=== PATIENT | female | born 1970 | race Caucasian/White ===

== ENCOUNTER → 2016-07-05 | Day surgery (SDC) | payer OTHER ==
[2016-07-04 13:01] VITALS: Ht 162.6 cm; Wt 81.8 kg
[~2016-07-05] VITALS: Ht 162.6 cm; Wt 81.8 kg
[~2016-07-05] MED LIST: ALBUAER INH; MOME1AER4 INH; RIZA1TAB11 UT; RMCI IV; SODIUM CHLORIDE 0.9% 500ML 500 ML IV ONE; TRAM-10 PO
--- NOTE | 2016-07-05 08:39 | Endo History and Physical ---
History & Physical Date of Service: July 05, 2016. Chief Complaint: Crohn's Referring Physician: Dr. Jerald Hayes History of Present Illness 46 yo CF who presents for colonoscopy secondary to Crohn's Disease. Past Medical History Asthma Past Surgical History Hx Cardiac Surgery: No Hx Internal Defibrillator: No Hx Pacemaker: No Hx Abdominal Surgery: Yes (ANDER, COLON RESECTION, UTERINE ABLATION) Hx of Implantable Prosthesis: No Hx Post-Op Nausea and Vomiting: No Hx Cancer Surgery: No Hx Thoracic Surgery: No Hx Orthopedic: Yes (LEFT KNEE SX X 3, RT ANKLE SX WITH HARDWARE) Hx Urinary Tract Surgery: Yes (BLADDER SLING) Family History Colon CA, Polyp Social History Smoking Status: Never Smoker Hx Substance Use: No Hx Alcohol Use: Yes (RARELY) Allergies Coded Allergies: Sulfa Antibiotics (Verified Allergy, Severe, RASH, 07/04/16) Current Medications Reported Home Medications Medications Dose Route/Sig Max Daily Dose Days Date Category Dose Instructions Proventil Hfa (Albuterol Sulfate) 108 Mcg/Act Aer 2 Puff INH QID PRN 07/04/16 Reported Rizatriptan Benzoate 10 Mg Tab 10 Mg UT Q6H PRN 04/17/14 Reported Remicade (Infliximab) 100 Mg/10 Ml Inj 1 Dose IV Q8WK 03/07/14 Reported 10 MG/KG Asmanex 30 Metered Doses (Mometasone Furoate) 220 Mcg/ Aer 1 Puff INH QAM 02/06/13 Reported Vital Signs Weight (Kilograms): 81.82 Height (Feet): 5 Height (Inches): 4 Date Time Temp Pulse Resp B/P Pulse Ox O2 Delivery O2 Flow Rate FiO2 07/05/16 08:14 36.9 88 20 112/77 98 Room Air Physical Exam General Appearance: WD/WN, no apparent distress Respiratory/Chest: Auscultation: breath sounds normal Cardiovascular: Heart Auscultation: RRR Abdomen: Bowel Sounds: normal Inspection & Palpation: soft, non-distended, no tenderness, guarding & rebound Assessment and Plan Assessment: 46 yo CF who presents for colonoscopy secondary to Crohn's Disease. Plan: Proceed with colonoscopy.
--- NOTE | 2016-07-05 09:12 | Discharge Instructions ---
Endoscopy Patient Instructions Date / Procedure(s) Performed July 05, 2016. Colonoscopy Allergy Information Coded Allergies: Sulfa Antibiotics (Verified Allergy, Severe, RASH, 07/04/16) Discharge Date / Findings July 05, 2016. Colon polyps Crohn's Disease with Random colon biopsies Medication Instructions OK to resume all medications today as prescribed Reported Home Medications Medications Dose Route/Sig Max Daily Dose Days Date Category Dose Instructions Proventil Hfa (Albuterol Sulfate) 108 Mcg/Act Aer 2 Puff INH QID PRN 07/04/16 Reported Rizatriptan Benzoate 10 Mg Tab 10 Mg UT Q6H PRN 04/17/14 Reported Remicade (Infliximab) 100 Mg/10 Ml Inj 1 Dose IV Q8WK 03/07/14 Reported 10 MG/KG Asmanex 30 Metered Doses (Mometasone Furoate) 220 Mcg/ Aer 1 Puff INH QAM 02/06/13 Reported Provider Instructions Activity Restrictions - No exercising or heavy lifting for 24 hours. - Do not drink alcohol the day of the procedure. - Do not drive a car or operate machinery until the day after the procedure. - Do not make any important decisions or sign important papers in 24 hours after the procedure. Following Day: - Return to full activity which may include returning to work/school. Diet Start your diet with liquids and light foods (jello, soup, juice, toast). Then eat your usual diet if not nauseated. Treatment For Common After Affects For mild abdominal pain, bloating, or excessive gas: - Rest - Eat lightly - Lie on right side Follow-Up Information Follow-up with Dr. Darshana Hayes as scheduled Anesthesia Information What You Should Know You have had a procedure that required some medicine to reduce anxiety and discomfort. This treatment is called moderate sedation. After receiving the treatment, you may be sleepy, but you will be able to breathe on your own. The effects of the treatment may last for several hours. Follow these instructions along with Activity/Diet recommendations noted above: * Do NOT do anything where dizziness or clumsiness would be dangerous. * Rest quietly at home today, then you can be up and about tomorrow. * Have a responsible person stay with you the rest of today. * You may have had an I.V. today. If so, you may take the dressing off later today. Recommendations Call your doctor if: * Trouble breathing * Continuous vomiting for more than 24 hours * Temperature above 101 degrees * Severe abdominal pain or bloating * Pain not relieved by pain medicine ordered * There is increased drainage or redness from any incision * A large amount of rectal bleeding greater than 2-3 tablespoons. (If you had a polyp/s removed or have hemorrhoids, a small amount of blood - from the rectum is to be expected.) * You have any unanswered questions or concerns. IN THE EVENT OF A SERIOUS EMERGENCY, GO TO THE NEAREST EMERGENCY ROOM Your discharge instructions were prepared by provider Tanner Wilcox. Patient Instructions Signature Page Xiomara Pierre Patient (or Guardian) Signature/Date: I have read and understand the instructions given to me by my caregivers. Caregiver/RN/Doctor Signature/Date: The above-named patient and/or guardian has received patient instructions on this date. + Original Patient Signature Page (only) stays with chart. Please make copy for patient.
--- NOTE | 2016-07-05 09:23 | GI REPORT ---
Procedure Date: 07/05/2016 8:46 AM Procedure: Colonoscopy Indications: Disease activity assessment of Crohn's disease of the small bowel Medicines: Monitored Anesthesia Care Complications: No immediate complications. Estimated Blood Loss: Estimated blood loss: none. Procedure: Pre-Anesthesia Assessment: - Prior to the procedure, a History and Physical was performed, and patient medications and allergies were reviewed. The patient's tolerance of previous anesthesia was also reviewed. The risks and benefits of the procedure and the sedation options and risks were discussed with the patient. All questions were answered, and informed consent was obtained. Prior Anticoagulants: The patient has taken no previous anticoagulant or antiplatelet agents. ASA Grade Assessment: II - A patient with mild systemic disease. After reviewing the risks and benefits, the patient was deemed in satisfactory condition to undergo the procedure. After I obtained informed consent, the scope was passed under direct vision. Throughout the procedure, the patient's blood pressure, pulse, and oxygen saturations were monitored continuously. The scope was introduced through the anus and advanced to the terminal ileum. The colonoscopy was performed without difficulty. The patient tolerated the procedure well. The quality of the bowel preparation was good. The terminal ileum, ileocecal valve, appendiceal orifice, and rectum were photographed. Findings: Three sessile polyps were found in the rectum and in the ascending colon. The polyps were 5 to 8 mm in size. These polyps were removed with a hot snare. Resection and retrieval were complete. Several random biopsies were obtained with cold forceps for histology in the entire colon. Impression: - Three 5 to 8 mm polyps in the rectum and in the ascending colon, removed with a hot snare. Resected and retrieved. - Several random biopsies were obtained in the entire colon. Recommendation: - Resume previous diet. - Continue present medications. - Repeat colonoscopy for surveillance based on pathology results. - Return to primary care physician as previously scheduled. Tanner Wilcox DO 07/05/2016 9:23:16 AM This report has been signed electronically. Note Initiated On: 07/05/2016 8:46 AM I attest to the content of the Intraoperative Record and orders documented therein, exceptions below
[2016-07-05 09:45] VITALS: BP 118/82; PULSE 75; O2SAT 98
--- NOTE | 2016-07-05 09:54 | Anesthesiology Progress Note ---
Anesthesia Post Op Note Date & Time July 05, 2016 at 09:54 Vital Signs Pain Intensity: 0 Vital Signs Past 12 Hours Date Time Temp Pulse Resp B/P Pulse Ox O2 Delivery O2 Flow Rate FiO2 07/05/16 09:45 75 20 118/82 98 Room Air 07/05/16 09:30 67 16 96/68 96 Room Air 07/05/16 09:15 72 16 100/68 99 Room Air 07/05/16 08:14 36.9 88 20 112/77 98 Room Air Notes Mental Status: alert / awake / arousable, participated in evaluation Pt Amnestic to Procedure: Yes Nausea / Vomiting: adequately controlled Pain: adequately controlled Airway Patency, RR, SpO2: stable & adequate BP & HR: stable & adequate Hydration State: stable & adequate Anesthetic Complications: no major complications apparent
== END | disposition home or self-care (01) ==
LOC: C.GI 07:49
PROVIDERS: ATTEND Internal Medicine
DX: K50.90 Crohn's disease, unspecified, without complications (principal); D12.2 Benign neoplasm of ascending colon; K62.1 Rectal polyp; Z83.71 Family history of colonic polyps; Z80.0 Family history of malignant neoplasm of digestive organs; Z90.49 Acquired absence of other specified parts of digestive tract; J45.909 Unspecified asthma, uncomplicated

== ENCOUNTER → 2016-08-19 | Outpatient (CLI) | payer OTHER ==
[~2016-08-19] MED LIST changes: -SODIUM CHLORIDE 0.9% 500ML 500 ML IV ONE
--- NOTE | 2016-08-19 13:47 | MAMMOGRAPHY REPORT ---
BILATERAL DIGITAL SCREENING MAMMOGRAM TOMOSYNTHESIS WITH CAD: 08/19/2016 CLINICAL HISTORY: Routine screening. Patient has no complaints. TECHNIQUE: Breast tomosynthesis in addition to standard 2D mammography was performed. Current study was also evaluated with a Computer Aided Detection (CAD) system. COMPARISON: Comparison is made to exams dated: 07/31/2015 mammogram, 06/26/2013 ultrasound, 06/26/2013 m ammogram, 05/10/2012 mammogram, 10/14/2011 ultrasound, and 10/14/2011 mammogram - [facility]. BREAST COMPOSITION: There are scattered areas of fibroglandular density in both breasts. FINDINGS: No suspicious masses, calcifications, or areas of architectural distortion are noted in ei ther breast. There has been no significant interval change compared to prior exams. IMPRESSION: ACR BI-RADS CATEGORY 1: NEGATIVE There is no mammographic evidence of malignancy. A 1 year screening mammogram is recommended. The pa tient will receive written notification of the results. Approximately 10% of breast cancers are not detected with mammography. A negative mammographic report should not delay biopsy if a clinically suggestive mass is present. Domi Valiente M.D. /:08/19/2016 13:40:07 Vice President Sales And Marketing: Tete BURGER(R)(M), [facility] letter sent: Normal 1/2 BI-RADS Code: ACR BI-RADS Category 1: Negative
== END | disposition home or self-care (01) ==
LOC: C.MAMM 13:16
PROVIDERS: ATTEND Obstetrics & Gynecology
DX: Z12.31 Encounter for screening mammogram for malignant neoplasm of breast (principal)

== ENCOUNTER → 2016-09-25 | Outpatient (CLI) | payer OTHER ==
[2016-09-28 14:15] LABS: QUANTIFERON NIL 0.03 IU/ML
== END | disposition home or self-care (01) ==
LOC: C.LAB 15:16
PROVIDERS: ATTEND Internal Medicine
DX: K50.90 Crohn's disease, unspecified, without complications (principal)

== ENCOUNTER → 2016-11-15 | Day surgery (SDC) | payer OTHER ==
[2016-10-06 11:51] VITALS: Ht 156.2 cm; Wt 80.0 kg
[2016-11-03 10:11] LABS: BASO % 0.6 %; BASO ABS # 0.04 K/uL (0-0.2); COMPLETE YES; EOS % 2.6 %; HEMATOCRIT 39.8 % (37-47); IG% 0.1 %; LYMPH ABS # 2.32 K/uL (1.2-3.4); MEAN CORPUSCULAR HGB CONC 32.7 g/dl (32-36); MEAN PLATELET VOLUME 10.4 fL (7.4-10.4); MONO % 7.3 %; NEUT % 55.4 %; PLATELET COUNT 357 K/uL (130-400); RED BLOOD COUNT 4.19 M/uL (4.2-5.4); WHITE BLOOD COUNT 6.82 K/uL (4.8-10.8)
[~2016-11-15] VITALS: Ht 156.2 cm; Wt 80.0 kg
[~2016-11-15] MED LIST changes: +ATROPINE SULFATE 0.1 MG/ML 5ML SYR IV PRN; +BUPIVACAINE 0.5 % 5 MG/1 ML MPF 30ML VIAL ONE; +CEFAZOLIN 2000 MG/60 ML D5W 60 ML IV SCH; +DEXAMETHASONE SOD INJ 4 MG/ML VIAL ONE; +EpHEDrine SULFATE 50MG/5ML SYR ONE; +EpHEDrine SULFATE INJ 50 MG/ML AMP IV PRN; +FENTANYL CITRATE INJ 50 MCG/1 ML 2 ML VIAL ONE; +LACTATED RINGER'S 1000ML 1,000 ML IV SCH; +LIDOCAINE HCL 2% 2 ML VIAL (20MG/ML) ONE; +MIDAZOLAM HCL 1 MG/ML 2ML VIAL ONE; +ONDANSETRON INJ 2 MG/ML 2 ML VIAL IV PRN; +ONDANSETRON INJ 2 MG/ML 2 ML VIAL ONE; +OXYCODONE/ACETAMINOPHEN 5-325 TAB PO PRN; +PROPOFOL IV EMULSION 10 MG/ML 20 ML VIAL IV ONE; +SODIUM CHLORIDE 0.9% 1000ML 1,000 ML IV SCH
--- NOTE | 2016-11-15 07:39 | History & Physical Bridge - SC ---
H&P Re-Evaluation Bridge Note: I have examined the patient, reviewed the History & Physical and in the interval since the performance of the History & Physical I have noted the following changes of clinical significance: No changes noted
--- NOTE | 2016-11-15 08:34 | [facility] Post Operative Brief Note ---
Immediate Operative Summary Operative Date Nov 15, 2016. Pre-Operative Diagnosis Right Ankle Retained Painful Hardware Post-Operative Diagnosis Same Procedure(s) Performed Right Ankle Painful Hardware Removal Surgeon Dr. Wolfe Tailor Helper Surgeon(s) Isabel Nice PA-C Estimated Blood Loss 5ml Findings as above Specimens None Hardware removed intact. Patient does not want hardware and does not want to sent it for pathology. Anesthesia LMA Complication(s) None Disposition Recovery Room / PACU
--- NOTE | 2016-11-15 08:39 | Discharge Instructions-SurgCtr ---
Discharge Instructions Date of Service Nov 15, 2016. Visit Reason for Visit: Right Ankle Retained Painful Hardware Discharge Discharge Diagnosis / Problem: SAME ABOVE Discharge Goals Goal(s): Decrease discomfort, Improve function Activity Recommendations Activity Limitations: as noted below Lifting Limitations: gradually increase as tolerated Exercise/Sports Limitations: until after follow-up appointment Shower/Bathe: keep incision dry Weightbearing Status: Right weightbearing (as tolerated) Anesthesia . Post Anesthesia Instructions: If you have had General Anesthesia or IV Sedation: * Do not drive today. * Resume driving when surgeon permits. * Do not make important decisions or sign legal documents today. * Call surgeon for: 1. Temperature elevations greater than 101 degrees F. 2. Uncontrollable pain. 3. Excessive bleeding. 4. Persistent nausea and vomiting. 5. Medication intolerance (nausea, vomiting or rash). * For nausea and vomiting use only clear liquids such as: tea, soda, bouillon until nausea subsides, then gradually increase diet as tolerated. * If you have any concerns or questions, call your surgeon's office. If physician is unavailable and it is an emergency, call 911 or go to the nearest emergency room. . Diet Recommendations Home Diet: resume previous diet Procedures Procedures Performed: Right Ankle Painful Hardware Removal Pending Studies Studies pending at discharge: no Medical Emergencies . Who to Call and When: Medical Emergencies: If at any time you feel your situation is an emergency, please call 911 immediately. . Non-Emergent Contact Non-Emergency issues call your: Primary Care Provider . . "Provider Documentation" section prepared by Geovany Nice. .
[2016-11-15] MEDS: FENTANYL CITRATE INJ 50 MCG/1 ML 2 ML VIAL IV PRN ×3 (09:05→09:25)
--- NOTE | 2016-11-15 09:15 | Anesthesia Progress Nt - [facility] ---
Anesthesia Post Op Note Date & Time Nov 15, 2016 at 09:15 Vital Signs Pain Intensity: 8.0 Vital Signs Past 12 Hours Date Time Temp Pulse Resp B/P (MAP) Pulse Ox O2 Delivery O2 Flow Rate FiO2 11/15/16 08:51 95 11 119/76 100 11/15/16 08:51 94 11 11/15/16 08:46 86 10 126/69 99 11/15/16 08:46 86 10 11/15/16 08:41 89 9 11/15/16 08:41 88 9 121/72 99 11/15/16 08:37 134/78 11/15/16 08:36 36.1 95 18 134/78 100 Mask 6 11/15/16 06:54 37.0 71 22 114/79 (91) 95 Room Air Notes Mental Status: alert / awake / arousable, participated in evaluation Pt Amnestic to Procedure: Yes Nausea / Vomiting: adequately controlled Pain: adequately controlled Airway Patency, RR, SpO2: stable & adequate BP & HR: stable & adequate Hydration State: stable & adequate Anesthetic Complications: no major complications apparent
[2016-11-15 10:29] VITALS: BP 108/69; PULSE 78; O2SAT 96
--- NOTE | 2016-11-15 14:54 | OPERATIVE REPORT ---
DATE OF OPERATION: 11/15/2016 PREOPERATIVE DIAGNOSIS: Painful retained hardware status post open reduction internal fixation right distal fibular fracture 2001. POSTOPERATIVE DIAGNOSIS: Same. PROCEDURE: Removal of deep hardware with excision of 9 screws in a 1/3 tubular plate, right distal fibula. SURGEON: Dr. Wolfe. HOSPICE ENTRANCE ATTENDANT: Geovany Nice PA-C. ANESTHESIOLOGIST: Haroldo Montano MD ANESTHESIA: LMA. DRAINS: None. COMPLICATIONS: None. CONDITION: The patient tolerated the procedure well and returned to the recovery room in apparent satisfactory condition. INDICATIONS FOR SURGERY: Xiomaar is a 46-year-old female who had ORIF of the distal fibular fracture back in 2001. She always had problems with the plate and screws and finally had the time to get around and get it taken out. Procedure with outcomes and side effects were all explained in detail. DESCRIPTION OF PROCEDURE: The patient was taken to the OR at which time she was placed supine on the operating table and put to sleep by anesthesia department. Right leg was prepped and draped in usual sterile fashion for surgery. We put a sandbag underneath the right hip to expose the leg, but we went ahead and prepped and draped in usual sterile fashion. We exsanguinated the extremity and went through the old incision with a 15 blade. It was dissected down and immediately 2 screw heads were present on the plate. Very carefully, we exposed the screw heads of the plate, removed scar tissue, and then we removed all screws including interfrag screw and the plate. The wound then was copiously irrigated numerous times. Electrocautery was used to control any areas of bleeding. We closed it with 2-0 Vicryl sutures and skin toby. We put Marcaine without epinephrine in the skin edges, placed sterile dressing of Xeroform, 4 x 4, soft roll, George bandage and a postop range of motion boot and returned to recovery in apparent satisfactory condition. I attest to the content of the Intraoperative Record and any orders documented therein. Any exception s are noted below.
== END | disposition home or self-care (01) ==
LOC: X.SURG 06:44
PROVIDERS: ATTEND Orthopaedic Surgery
DX: T84.196A Other mechanical complication of internal fixation device of bone of right lower leg, initial encounter (principal); Y83.1 Surgical operation with implant of artificial internal device as the cause of abnormal reaction of the patient, or of later complication, without mention of misadventure at the time of the procedure; J45.909 Unspecified asthma, uncomplicated; K50.90 Crohn's disease, unspecified, without complications

== ENCOUNTER → 2017-03-24 | Outpatient (CLI) | payer OTHER ==
[~2017-03-24] MED LIST changes: -ATROPINE SULFATE 0.1 MG/ML 5ML SYR IV PRN; -BUPIVACAINE 0.5 % 5 MG/1 ML MPF 30ML VIAL ONE; -CEFAZOLIN 2000 MG/60 ML D5W 60 ML IV SCH; -DEXAMETHASONE SOD INJ 4 MG/ML VIAL ONE; -EpHEDrine SULFATE 50MG/5ML SYR ONE; -EpHEDrine SULFATE INJ 50 MG/ML AMP IV PRN; -FENTANYL CITRATE INJ 50 MCG/1 ML 2 ML VIAL ONE; -LACTATED RINGER'S 1000ML 1,000 ML IV SCH; -LIDOCAINE HCL 2% 2 ML VIAL (20MG/ML) ONE; -MIDAZOLAM HCL 1 MG/ML 2ML VIAL ONE; -ONDANSETRON INJ 2 MG/ML 2 ML VIAL IV PRN; -ONDANSETRON INJ 2 MG/ML 2 ML VIAL ONE; -OXYCODONE/ACETAMINOPHEN 5-325 TAB PO PRN; -PROPOFOL IV EMULSION 10 MG/ML 20 ML VIAL IV ONE; -SODIUM CHLORIDE 0.9% 1000ML 1,000 ML IV SCH
--- NOTE | 2017-03-24 18:10 | DIAGNOSTIC IMAGING REPORT ---
CHEST 2 VIEWS ROUTINE HISTORY: J45.909 Acute asthmatic bronchitis COMPARISON: Chest 04/17/2014. FINDINGS: The lungs are clear. Cardiac silhouette is normal in size. No pleural effusions. No pneumothorax. IMPRESSION: No acute process. Electronically signed by: Demarcus Mueller M.D. 03/24/2017 6:08 PM Dictated Date/Time: 03/24/2017 5:52 PM
== END | disposition home or self-care (01) ==
LOC: C.RAD 16:49
PROVIDERS: ATTEND Physician Assistant Medical
DX: J45.909 Unspecified asthma, uncomplicated (principal)

== ENCOUNTER → 2017-06-22 | Outpatient (CLI) | payer OTHER ==
[~2017-06-22] MED LIST changes: -TRAM-10 PO
--- NOTE | 2017-06-22 14:17 | DIAGNOSTIC IMAGING REPORT ---
C-SPINE ROUTINE 4 OR 5 VIEWS CLINICAL HISTORY: Neck pain. Numbness, tingling. COMPARISON STUDY: No previous studies for comparison. FINDINGS: The prevertebral soft tissues are normal. No fractures or subluxations are visualized. There are degenerative changes at the C5-6 level. IMPRESSION: Mild degenerative changes at the C5-6 level. Electronically signed by: Waylon Munroe M.D. 06/22/2017 2:16 PM Dictated Date/Time: 06/22/2017 2:15 PM
== END ==
LOC: C.RAD 13:43
PROVIDERS: ATTEND Nurse Practitioner
DX: M54.2 Cervicalgia (principal)

== ENCOUNTER → 2017-10-05 | Outpatient (CLI) | payer OTHER | END | disposition home or self-care (01) | LOC: C.PAPS 16:43 | PROVIDERS: ATTEND Obstetrics & Gynecology | DX: Z12.4 Encounter for screening for malignant neoplasm of cervix (principal) ==